=== PATIENT | male | born 2000 | race Caucasian/White ===

== ENCOUNTER 2020-01-24 11:42 | Emergency (ER) | payer OTHER, SELFPAY ==
[2020-01-24 11:57] VITALS: BP 156/92; PULSE 86; RESP 16; TEMP 36.4; O2SAT 99
--- NOTE | 2020-01-24 12:04 | ED.ABDPAIN ---
HPI - Abdominal Pain General Chief Complaint: Abdominal Pain Stated Complaint: abd pain Time Seen by Provider: 01/24/20 12:04 Source: patient Mode of arrival: ambulatory Limitations: no limitations History of Present Illness HPI narrative: Aaron Benson is a 19 yo male with a PMH of GERD who comes to express care with epigastrix burning, has not been taking zantac. Has had epigastric pain this episode x 2 days - symptoms on and off for 2 years- has been seeing PCP jaclyn hall. Related Data Home Medications Medication Instructions Recorded Confirmed bismuth subsalicylate 2 tablet PO QID 01/24/20 01/24/20 [Pepto-Bismol] calcium carbonate [Tums] 300 mg PO QID 01/24/20 01/24/20 Allergies Allergy/AdvReac Type Severity Reaction Status Date / Time No Known Allergies Allergy Verified 01/24/20 12:00 Review of Systems Review of Systems: Narrative: CONSTITUTIONAL: Denies fever, chills, sweats. EYES: Denies visual changes, redness, discharge. ENT: Denies rhinorrhea, congestion, sore throat, otalgia. CARDIOVASCULAR: Denies chest pain, palpitations, edema. RESPIRATORY: Denies dyspnea, wheezing, cough GASTROINTESTINAL: Denies abdominal pain,has nausea, vomiting, no diarrhea. Epigastric pain GENITOURINARY: Denies dysuria, hematuria, abnormal discharge SKIN: Denies rash or itching. NEUROLOGIC: Denies numbness, or focal weakness. PSYCHIATRIC: Denies anxiety or depression. PMFSH Family History Family History (Updated 01/24/20 @ 12:11 by Gladis Burch CNP) Other Hypertension Social History Social History (Updated 01/24/20 @ 12:11 by Gladis Burch CNP) Smoking status: Current some day smoker Tobacco type: cigarettes Alcohol intake: never Comments At time of signature, I agree with nursing past medical, surgical, social and family history. There is no relevant family history pertinent to the presenting complaint. Elevated blood pressure due to discomfort and vomiting, follow-up with PCP Exam Narrative: Exam Narrative: GENERAL: This is a well-nourished, well-developed patient, in mild distress. HEAD: normocephalic, atraumatic. EYES: Sclera clear/white. Vision is grossly intact. EARS: External ears normal, . Hearing grossly intact. NOSE: External nose normal without nasal discharge, nares without redness, no rhinorrhea. THROAT: Mucous membranes moist, posterior pharynx mild erythema NECK: Neck supple, n CARDIOVASCULAR: Regular rate and rhythm without murmurs, gallops, or rubs. RESPIRATORY: Clear to auscultation. Breath sounds equal bilaterally. No wheezes, rales, or rhonchi. GASTROINTESTINAL: Abdomen soft, mild epigastric tenderness, SKIN: warm, intact with no suspicious lesions or rash, good texture and turgor. NEURO: awake, alert, and oriented to person, place and time. There were no obvious focal neurologic abnormalities. Steady gait EXTREMITIES: Normal range of motion. BACK: Nontender without deformity Course Course Emergency Course: Given Zofran and Pepcid here Started on both on outpatient basis patient directed to start on clear liquids and gradually increase intake and eat soft food x2 days Patient to follow-up with PCP to restart PPI Vital Signs Vital signs: Vital Signs Temperature 97.5 F L 01/24/20 11:57 Pulse Rate 86 01/24/20 11:57 Respiratory Rate 16 01/24/20 11:57 Blood Pressure 156/92 H 01/24/20 11:57 Pulse Oximetry 99 01/24/20 11:57 Temperature 97.5 F L 01/24/20 11:57 Pulse Rate 86 01/24/20 11:57 Respiratory Rate 16 01/24/20 11:57 Blood Pressure 156/92 H 01/24/20 11:57 Pulse Oximetry 99 01/24/20 11:57 MDM - Abdominal Pain Differential Diagnosis Differential diagnosis: Likely abdominal pain, gastroenteritis and other (GERD) Discharge Plan Discharge Clinical Impression: GERD (gastroesophageal reflux disease) Qualifiers: Esophagitis presence: without esophagitis Qualified Code(s): K21.9 - Gastro-esophageal reflux disease without esopha
[2020-01-24] MEDS: FAMOTIDINE 20 MG TABLET PO (12:18)
[2020-01-24] MEDS: ONDANSETRON HCL ODT 4 MG TABLET PO (12:18)
== END 2020-01-24 12:48 | disposition home or self-care (01) ==
PROVIDERS: Emergency Provider Nurse Practitioner
DX: K21.9 Gastro-esophageal reflux disease without esophagitis (principal); F17.210 Nicotine dependence, cigarettes, uncomplicated
CPT/HCPCS: 99203; A9270; G0463